=== PATIENT | female | born 1945 | race Two or more races ===

== ENCOUNTER 2023-08-26 05:26 | Inpatient (IN) | payer OTHER ==
[~2023-08-26] VITALS: Ht 167.6 cm; Wt 67.8 kg
[2023-08-26] MEDS: HYDROcodone-ACET 5/325MG TAB PO ONE (06:46)
[2023-08-26 06:56] LABS: Basophils # (auto) 0.1 10 ^3/uL (0-0.2); Basophils % (auto) 0.5 % (0.0-2.0); Eosinophils # (auto) 0 10 ^3/uL (0-0.8); Eosinophils % (auto) 0.2 % (0.0-7.0); Hematocrit 44.5 % (36.0-46.0); Hemoglobin 14.8 g/dL (12.2-16.2); Lymphocytes # (auto) 1.8 10 ^3/uL (0.4-5.4); Mean Corpuscular Hemoglobin 30.3 pg (28.0-32.0); Mean Corpuscular Hgb Conc. 33.4 g/dL (32.0-36.0); Mean Corpuscular Volume 90.9 fL (80.0-100.0); Monocytes # (auto) 0.7 10 ^3/uL (0-1.3); Monocytes % (auto) 5.6 % (0.0-12.0); Neutrophils # (auto) 9.9 10 ^3/uL (1.6-8.6); Neutrophils % (auto) 79.7 % (37.0-80.0); Nucleated Red Blood Cells % 0.1 %; Red Blood Cells 4.89 10^6/uL (4.0-5.20); Red Cell Distribution Width 13.7 % (11.8-14.3); White Blood Cell 12.5 10^3/uL (4.4-10.8)
[2023-08-26] MEDS: MORPHINE SULFATE 4 MG/ML SYR/VIAL IV ONE ×2 (07:15→11:43)
[2023-08-26] MEDS: SODIUM CHLORIDE 0.9% 500 ML IVB ONE (07:15)
[2023-08-26] MEDS: ONDANSETRON HCL 4 MG/2 ML VIAL IV ONE ×2 (07:15→11:43)
[2023-08-26 07:17] LABS: Alanine Aminotransferase 35 U/L (7-40); Albumin 4.2 g/dL (3.2-4.8); Alkaline Phosphatase 101 U/L (46-116); Anion Gap 11 (5-15); Aspartate Aminotransferase 23 U/L (13-40); BUN/Creatinine Ratio 16.9 (10.0-20.0); Bilirubin, Total 0.7 mg/dL (0.2-1.0); Blood Urea Nitrogen 13 mg/dL (9-23); Calcium 9.7 mg/dL (8.7-10.4); Carbon Dioxide 23 mmol/L (20-30); Chloride 105 mmol/L (98-107); Glucose 156 mg/dL (74-106); Lipase 29 U/L (12-53); Sodium 139 mmol/L (136-145); Total Protein 6.7 g/dL (5.7-8.2)
[2023-08-26 08:42] LABS: Urine Bacteria NONE SEEN /hpf (None Seen); Urine Blood Negative /uL (Negative); Urine Clarity Clear (Clear); Urine Color Yellow (Yellow); Urine Mucus FEW (None Seen); Urine Protein, UAD 1+ (Negative); Urine Specific Gravity 1.028 (1.001-1.035); Urine Urobilinogen Normal (Negative); Urine WBC 1 /hpf (0 - 5); Urine pH 8.5 (5.0-8.0)
[2023-08-26 11:30] VITALS: PULSE 72; RESP 18; O2SAT 98
[2023-08-26] MEDS ORDERED: MORPHINE SULFATE INJ 2 MG/ml SYRG IV PRN ×2 (14:15)
[2023-08-26] MEDS ORDERED: ONDANSETRON HCL 4 MG/2 ML VIAL IV PRN (14:15)
[2023-08-26] MEDS ORDERED: NITROGLYCERIN 0.4 MG SL TAB SL PRN (14:15)
[2023-08-26] MEDS ORDERED: MORPHINE SULFATE 4 MG/ML SYR/VIAL IV PRN (14:45)
[2023-08-26] MEDS: SODIUM CHLORIDE 0.9% 1,000 ML IV SCH (15:10)
[2023-08-26] MEDS: MORPHINE SULFATE INJ 2 MG/ml SYRG IV PRN (16:03)
[2023-08-26 17:36] VITALS: BP 142/55; PULSE 85; RESP 18; TEMP 98.7; O2SAT 94
[2023-08-26] MEDS ORDERED: PIPERACILLIN-TAZOB 3.375GM 100 ML IV SCH (18:00)
[2023-08-26] MEDS ORDERED: POM (19:21)
[2023-08-26 20:00] VITALS: BP 140/62; PULSE 75; RESP 18; TEMP 98.1; O2SAT 97
[2023-08-26 22:00] VITALS: BP 140/62; PULSE 75; RESP 18; TEMP 98.1; O2SAT 97
[2023-08-27] VITALS (7 sets, daily range): BP systolic 101–135; BP diastolic 63–84; PULSE 87–108; RESP 16–20; TEMP 97.6–98.1; O2SAT 93–98
[2023-08-27] MEDS: ENOXAPARIN SOD 40 MG/0.4 ML SYRINGE SC SCH (09:41)
[2023-08-27] MEDS: PANTOPRAZOLE 40 MG/10 ML VIAL INJ IV SCH (09:41)
[2023-08-27] MEDS ORDERED: PANTOPRAZOLE 40 MG/10 ML VIAL INJ IV SCH (10:00)
[2023-08-28 05:00] VITALS: BP 124/58; PULSE 103; RESP 19; TEMP 97.9; O2SAT 94
[2023-08-28 08:50] VITALS: BP 130/60; PULSE 101; RESP 18; TEMP 97.8; O2SAT 98
[2023-08-28] MEDS ORDERED: CLINIMIX PER PHARMACY 0 ML IV SCH (09:15)
[2023-08-28] MEDS ORDERED: GASTROGRAFIN 120 ML SOL ONE (09:31)
[2023-08-28] MEDS: THROAT LOZENGES(CEPASTAT) MT PRN (11:10)
[2023-08-28 13:00] VITALS: BP 122/68; PULSE 99; RESP 18; TEMP 97.9; O2SAT 97
[2023-08-28 13:42] LABS: Alanine Aminotransferase 30 U/L (7-40); Albumin 3.7 g/dL (3.2-4.8); Alkaline Phosphatase 80 U/L (46-116); Anion Gap 14 (5-15); Aspartate Aminotransferase 31 U/L (13-40); BUN/Creatinine Ratio 11.1 (10.0-20.0); Blood Urea Nitrogen 6 mg/dL (9-23); Calcium 8.1 mg/dL (8.7-10.4); Carbon Dioxide 16 mmol/L (20-30); Chloride 111 mmol/L (98-107); Glucose 75 mg/dL (74-106); Potassium 4.4 mmol/L (3.5-5.1); Sodium 141 mmol/L (136-145)
[2023-08-28 13:43] LABS: Phosphorus 2.3 mg/dL (2.4-5.1)
[2023-08-28] MEDS: CALCIUM GLUC 1,000mg/50ml-NS 50 ML IV ONE (15:24)
[2023-08-28] MEDS: SODIUM PHOSPHATES 20 MEQ in SODIUM CHL 0.9% 100 ML IV ONE (16:32)
[2023-08-28 16:45] VITALS: BP 149/67; PULSE 97; RESP 18; TEMP 98; O2SAT 99
[2023-08-28 20:15] VITALS: RESP 18
[2023-08-28] MEDS: AMINO ACID INFUSION IN D10W 1,000 ML IV SCH (20:29)
[2023-08-28 22:00] VITALS: BP 128/60; PULSE 95; RESP 16; TEMP 98.1; O2SAT 97
[2023-08-28] MEDS: ACCU-CHEK COMFORT CURVE STRIP VI SCH (23:41)
[2023-08-28] MEDS: InsuLIN REG 1unit/0.01ml Soln (100units/ml) SC SCH (23:41)
[2023-08-29] VITALS (7 sets, daily range): BP systolic 130–160; BP diastolic 61–75; PULSE 90–91; RESP 16–18; TEMP 97.9–98.2; O2SAT 96–99
[2023-08-29] MEDS ORDERED: DEXTROSE (50%) 50ML SYRG IV SCH
[2023-08-29] MEDS ORDERED: PANTOPRAZOLE 40mg/50ML NS AE 50 ML IV SCH (06:30)
[2023-08-29 07:46] LABS: Alanine Aminotransferase 24 U/L (7-40); Albumin 3.4 g/dL (3.2-4.8); Alkaline Phosphatase 76 U/L (46-116); Anion Gap 12 (5-15); Aspartate Aminotransferase 30 U/L (13-40); Bilirubin, Direct 0.2 mg/dL (<0.3); Bilirubin, Total 0.7 mg/dL (0.2-1.0); Calcium 8.1 mg/dL (8.5-10.1); Carbon Dioxide 16 mmol/L (20-30); Chloride 110 mmol/L (98-107); GFR African American 158 mL/min; GFR Non-African American 131 mL/min; Glucose 103 mg/dL (74-106); Phosphorus 1.7 mg/dL (2.4-5.1); Potassium 3.4 mmol/L (3.5-5.1); Sodium 138 mmol/L (136-145); Total Protein 5.4 g/dL (5.7-8.2)
[2023-08-29 07:50] LABS: Basophils # (auto) 0 10 ^3/uL (0-0.2); Basophils % (auto) 0.3 % (0.0-2.0); Eosinophils # (auto) 0.2 10 ^3/uL (0-0.8); Eosinophils % (auto) 1.5 % (0.0-7.0); Lymphocytes # (auto) 1.4 10 ^3/uL (0.4-5.4); Lymphocytes % (auto) 13.5 % (10.0-50.0); Mean Corpuscular Hemoglobin 31.1 pg (28.0-32.0); Mean Corpuscular Hgb Conc. 33.4 g/dL (32.0-36.0); Mean Corpuscular Volume 93.1 fL (80.0-100.0); Monocytes # (auto) 0.7 10 ^3/uL (0-1.3); Monocytes % (auto) 6.2 % (0.0-12.0); Neutrophils # (auto) 8.4 10 ^3/uL (1.6-8.6); Neutrophils % (auto) 78.5 % (37.0-80.0); Red Blood Cells 3.87 10^6/uL (4.0-5.20); Red Cell Distribution Width 13.6 % (11.8-14.3); White Blood Cell 10.7 10^3/uL (4.4-10.8)
[2023-08-29 07:52] LABS: BUN/Creatinine Ratio 10.2 (10.0-20.0); Blood Urea Nitrogen < 5 mg/dL (9-23)
[2023-08-29 09:06] LABS: Gastric Occult Blood Positive (Negative)
[2023-08-29 15:03] LABS: INR 0.98 (0.9-1.15); Partial Thromboplastin Time 31.9 SEC (24.5-34.5); Prothrombin Time 10.3 sec (9.3-11.8)
[2023-08-29] MEDS: POTASSIUM PHOSPHATE 22 MEQ in SODIUM CHL 0.9% 100 ML IV ONE (16:30)
[2023-08-29] MEDS: PANTOPRAZOLE 40 MG/10 ML VIAL INJ IV SCH (22:12)
[2023-08-30 05:00] VITALS: BP 122/56; PULSE 106; RESP 18; TEMP 98.6; O2SAT 98
[2023-08-30 05:11] LABS: Chloride 112 mmol/L (98-107); Potassium 3.3 mmol/L (3.5-5.1); Sodium 142 mmol/L (136-145)
[2023-08-30 05:12] LABS: Anion Gap 7 (5-15); Calcium 7.6 mg/dL (8.7-10.4); Carbon Dioxide 23 mmol/L (20-30)
[2023-08-30 05:17] LABS: GFR African American 166 mL/min; GFR Non-African American 137 mL/min; Glucose 110 mg/dL (74-106)
[2023-08-30 05:18] LABS: Magnesium 1.9 mg/dL (1.6-2.6)
[2023-08-30 05:19] LABS: Albumin 3.2 g/dL (3.2-4.8); Phosphorus 1.9 mg/dL (2.4-5.1)
[2023-08-30 05:21] LABS: BUN/Creatinine Ratio 10.6 (10.0-20.0); Blood Urea Nitrogen < 5 mg/dL (9-23)
[2023-08-30 07:30] VITALS: RESP 16
[2023-08-30 08:30] VITALS: BP 123/51; PULSE 88; RESP 17; TEMP 97.7; O2SAT 96
[2023-08-30 14:06] VITALS: BP 123/61; PULSE 88; RESP 17; TEMP 97.7; O2SAT 96
== END 2023-08-30 15:00 | disposition home health service (06) | DRG 390 ==
LOC: EDBD 05:26 → ER 05:26 → TELE 14:07 → WEST WING 17:30
PROVIDERS: ADMIT Internal Medicine; ATTEND Internal Medicine
DX: K56.609 Unspecified intestinal obstruction, unspecified as to partial versus complete obstruction (principal); Z90.710 Acquired absence of both cervix and uterus; Z90.722 Acquired absence of ovaries, bilateral; Z90.49 Acquired absence of other specified parts of digestive tract
CPT/HCPCS: 36415; 74018; 74176; 74250; 80053; 80069; 80076; 81001; 82271; 82962; 83690; 83735; 84100; 85025; 85610; 85730; 87081; 93005; 96361; 96374; 96375; C9113; G0378; J2405